=== PATIENT | female | born 2000 | race African-American/Black ===

== ENCOUNTER 2021-02-01 12:57 | Emergency (ER) | payer OTHER ==
[~2021-02-01] VITALS: Ht 172.7 cm; Wt 54.4 kg
[~2021-02-01 12:57] MED LIST: DEPO-ESTRAD5 MG/1 ML IM; ZPAK PO
[2021-02-01] MEDS ORDERED: MOBIC7.5 MG PO (14:57)
[2021-02-01 15:27] VITALS: BP 110/73
== END 2021-02-01 15:27 | disposition home or self-care (01) ==
LOC: ER 12:57
DX: U07.1 COVID-19 (principal); R51.9 Headache, unspecified; Z79.899 Other long term (current) drug therapy